=== PATIENT | male | born 1990 ===

== ENCOUNTER 2023-02-14 01:18 | Inpatient (IN) | payer SELFPAY ==
[~2023-02-14] VITALS: Ht 177.8 cm; Wt 82.7 kg
[2023-02-14] MEDS ORDERED: 0.9% SODIUM CHLORIDE 10 ML SYRINGE IVP PRN (01:45)
[2023-02-14] MEDS ORDERED: VANCOMYCIN HCL 1.25 GM in DEXTROSE 5%-WATER 250 ML IV ONE (01:45)
[2023-02-14] MEDS ORDERED: PIPERACILLIN SODIUM/TAZOBACTAM 4.5 GM in DEXTROSE 5%-WATER 100 ML IV ONE (01:45)
[2023-02-14] MEDS ORDERED: ACETAMINOPHEN 1000 MG/ISO-OSM 100 ML IV ONE (01:45)
[2023-02-14] MEDS ORDERED: SODIUM CHLORIDE 0.9% 2,450 ML IV ONE (01:45)
[2023-02-14 02:04] LABS: BASOPHILS % (AUTO) 0.2 % (0.0-2.0); EOSINOPHILS % (AUTO) 0 % (1.0-6.0); HEMOGLOBIN 13.7 g/dL (13.5-17.5); LYMPHOCYTES # (AUTO) 1.2 K/uL (1.0-4.8); LYMPHOCYTES % (AUTO) 11.5 % (22.0-44.0); MEAN CORPUSCULAR HEMOGLOBIN 28.6 pg (26.0-34.0); MEAN CORPUSCULAR HGB CONC 33.3 G/dL (31.0-37.0); MEAN CORPUSCULAR VOLUME 86 fL (80-100); MONOCYTES # (AUTO) 0.9 K/uL (0.1-1.0); MONOCYTES % (AUTO) 8.2 % (2.0-9.0); NEUTROPHILS # (AUTO) 8.5 K/uL (1.8-7.7); NEUTROPHILS % (AUTO) 80.1 % (40.0-70.0); PLATELET COUNT (AUTO) 201 K/uL (150-450); RED BLOOD CELL COUNT(AUTO) 4.77 MIL/uL (4.50-5.90); RED CELL DISTRIBUTION WIDTH 14.8 % (11.5-14.5); WHITE BLOOD COUNT (AUTO) 10.6 K/uL (4.5-11.0)
[2023-02-14 02:08] LABS: CALCIUM, TOTAL 8.5 mg/dL (8.8-10.5); CREATININE 1.55 mg/dL (0.60-1.30); POTASSIUM 4.2 mmol/L (3.5-5.1)
[2023-02-14 02:12] LABS: COVID AG,FIA SOURCE NASAL SWAB
[2023-02-14 02:16] LABS: TROPONIN I-HIGH SENSITIVITY 5 ng/L (<76)
[2023-02-14 02:19] LABS: ALBUMIN 3.4 g/dL (3.4-5.0); BILIRUBIN,TOTAL 0.8 mg/dL (0.1-1.0); MAGNESIUM 1.3 mg/dL (1.80-2.40); PHOSPHORUS 2.4 mg/dL (2.5-4.9); TOTAL PROTEIN, SERUM 8.1 g/dL (6.4-8.2)
[2023-02-14 02:44] LABS: INFLUENZA TYPE A NEGATIVE FOR TYPE A (NEGATIVE); INFLUENZA TYPE B NEGATIVE FOR TYPE B (NEGATIVE); SARS-COV2 (COVID) ANTIGEN,FIA Negative (Negative)
[2023-02-14] MEDS ORDERED: MAGNESIUM SULFATE 4 GM/WATER 100 ML IV PRN (02:45)
[2023-02-14] MEDS ORDERED: MAGNESIUM SULFATE 2 GM/WATER 50 ML IV PRN (02:45)
[2023-02-14] MEDS ORDERED: POTASSIUM CHL 10 MEQ/WATER 50 ML IV PRN (02:45)
[2023-02-14] MEDS ORDERED: ONDANSETRON HCL 4 MG/2 ML VIAL IVP PRN (02:45)
[2023-02-14] MEDS ORDERED: MAGNESIUM OXIDE 400 MG TABLET PO PRN (02:45)
[2023-02-14] MEDS ORDERED: POTASSIUM PHOS,M-BASIC-D-BASIC 10 MMOL in DEXTROSE 5%-WATER 100 ML IV ONE (02:45)
[2023-02-14] MEDS ORDERED: MAGNESIUM SULFATE 2 GM/WATER 50 ML IV ONE (02:45)
[2023-02-14] MEDS ORDERED: POTASSIUM CHLORIDE 20 MEQ ER TABLET PO PRN (02:45)
[2023-02-14] MEDS: RINGERS SOLUTION,LACTATED 1,000 ML IV SCH ×3 (03:02→23:39)
[2023-02-14] MEDS ORDERED: SULFAMETHOX/TRIMETH DS 800-160 MG/TABLET PO ONE (04:30)
[2023-02-14] MEDS ORDERED: AZITHROMYCIN 500 MG/NS 250 ML IV ONE (04:30)
[2023-02-14 05:53] LABS: APPEARANCE,URINE CLEAR (CLEAR); BILIRUBIN,URINE NEGATIVE (NEGATIVE); COLOR,URINE LIGHT YELLOW (YELLOW); GLUCOSE, URINE (UA) NEGATIVE (NEGATIVE); KETONES,URINE NEGATIVE (NEGATIVE); LEUKOCYTE ESTERASE ,URINE NEGATIVE (NEGATIVE); NITRATE,URINE NEGATIVE (NEGATIVE); OCCULT BLOOD,URINE NEGATIVE (NEGATIVE); PROTEIN,URINE NEGATIVE (NEGATIVE); SPECIFIC GRAVITIY, URINE 1.012 (1.003-1.030); UROBILINOGEN,URINE <=1.0 mg/dL (<=1.0)
[2023-02-14 06:00] LABS: ALCOHOL, URINE DRUG SCREEN NEGATIVE (NEGATIVE); AMPHET/METH SCREEN,URINE POSITIVE (NEGATIVE); BARBITURATE SCREEN, URINE NEGATIVE (NEGATIVE); BENZODIAZEPINES SCREEN,URINE NEGATIVE (NEGATIVE); CANNABINOID SCREEN,URINE NEGATIVE (NEGATIVE); COCAINE SCREEN,URINE NEGATIVE (NEGATIVE); METHADONE SCREEN, URINE NEGATIVE (NEGATIVE); OPIATE SCREEN,URINE NEGATIVE (NEGATIVE); PHENCYCLIDINE SCREEN,URINE NEGATIVE (NEGATIVE)
[2023-02-14] MEDS: HEPARIN SODIUM,PORCINE 5,000 UNITS/ML VIAL SQ SCH ×3 (08:00→23:41)
[2023-02-14] MEDS ORDERED: SODIUM CHLORIDE 0.9% 1,000 ML IV ONE (11:00)
[2023-02-14 11:34] VITALS: BP 102/62; PULSE 95; RESP 18; TEMP 98.9; O2SAT 99
[2023-02-14] MEDS: CefTRIAXone 1 GM/DEXTROSE 50 ML IV SCH (12:27)
[2023-02-14 15:48] VITALS: BP 113/57; PULSE 102; RESP 18; TEMP 97.6
[2023-02-14] MEDS: ACETAMINOPHEN 325 MG TABLET PO PRN ×2 (16:13→21:51)
[2023-02-14 19:34] VITALS: BP 103/56; PULSE 93; RESP 19; TEMP 99.4
[2023-02-14 20:04] VITALS: BP 94/56; PULSE 93; RESP 19; TEMP 100
[2023-02-14] MEDS ORDERED: LOPERAMIDE HCL 2 MG CAPSULE PO ONE (21:45)
[2023-02-15 03:06] LABS: LYMPHS % FOR CD4 COUNT 13 % (Not Estab.); LYMPHS ABS FOR CD4 COUNT 1.3 x10E3/uL (0.7-3.1)
[2023-02-15] MEDS: ACETAMINOPHEN 325 MG TABLET PO PRN ×2 (03:15→22:21)
[2023-02-15 04:50] VITALS: BP 110/65; PULSE 112; RESP 18; TEMP 101
[2023-02-15 07:15] LABS: BASOPHILS % (AUTO) 0.2 % (0.0-2.0); EOSINOPHILS % (AUTO) 0.2 % (1.0-6.0); HEMATOCRIT 34.9 % (41-53); HEMOGLOBIN 11.8 g/dL (13.5-17.5); LYMPHOCYTES # (AUTO) 1.2 K/uL (1.0-4.8); LYMPHOCYTES % (AUTO) 14.7 % (22.0-44.0); MEAN CORPUSCULAR HEMOGLOBIN 28.7 pg (26.0-34.0); MEAN CORPUSCULAR HGB CONC 33.9 G/dL (31.0-37.0); MEAN CORPUSCULAR VOLUME 85 fL (80-100); MONOCYTES # (AUTO) 0.5 K/uL (0.1-1.0); MONOCYTES % (AUTO) 6.4 % (2.0-9.0); NEUTROPHILS # (AUTO) 6.4 K/uL (1.8-7.7); NEUTROPHILS % (AUTO) 78.5 % (40.0-70.0); PLATELET COUNT (AUTO) 152 K/uL (150-450); RED BLOOD CELL COUNT(AUTO) 4.12 MIL/uL (4.50-5.90); RED CELL DISTRIBUTION WIDTH 14.4 % (11.5-14.5); WHITE BLOOD COUNT (AUTO) 8.1 K/uL (4.5-11.0)
[2023-02-15 07:21] LABS: ANION GAP 6 mmol/L (8-16); CALCIUM, TOTAL 7.9 mg/dL (8.8-10.5); CARBON DIOXIDE 26 mmol/L (22-29); CHLORIDE 102 mmol/L (98-107); CREATININE 1.11 mg/dL (0.60-1.30); GLOMERULAR FILTR. RATE CALC > 60 mL/min (>60); GLUCOSE,RANDOM 131 mg/dL (70-110); POTASSIUM 3.8 mmol/L (3.5-5.1); SODIUM SERUM 134 mmol/L (136-145); UREA NITROGEN, BLOOD 10 mg/dL (7-18)
[2023-02-15] MEDS: HEPARIN SODIUM,PORCINE 5,000 UNITS/ML VIAL SQ SCH ×3 (08:00→23:22)
[2023-02-15] MEDS: RINGERS SOLUTION,LACTATED 1,000 ML IV SCH ×2 (08:56→23:22)
[2023-02-15] MEDS: CefTRIAXone 1 GM/DEXTROSE 50 ML IV SCH (09:22)
[2023-02-15 10:07] LABS: ABSOLUTE CD4 COUNT 312 /uL (359-1519)
[2023-02-15 10:30] VITALS: BP 90/56; PULSE 70; RESP 18; TEMP 99.4
[2023-02-15] MEDS: MetroNIDAZOLE 500 MG TABLET PO SCH ×2 (16:49→23:22)
[2023-02-15 17:00] VITALS: BP 110/57; PULSE 65; RESP 19; TEMP 97.9
[2023-02-15 21:15] VITALS: BP 107/69; PULSE 73; RESP 18; TEMP 98.3
[2023-02-15] MEDS: MELATONIN 3 MG TABLET PO PRN (22:21)
[2023-02-15 23:40] LABS: APPEARANCE,URINE CLEAR (CLEAR); BILIRUBIN,URINE NEGATIVE (NEGATIVE); COLOR,URINE LIGHT YELLOW (YELLOW); GLUCOSE, URINE (UA) NEGATIVE (NEGATIVE); KETONES,URINE NEGATIVE (NEGATIVE); LEUKOCYTE ESTERASE ,URINE NEGATIVE (NEGATIVE); NITRATE,URINE NEGATIVE (NEGATIVE); OCCULT BLOOD,URINE NEGATIVE (NEGATIVE); PH,URINE 7.5 (5.0-8.0); PROTEIN,URINE NEGATIVE (NEGATIVE); SPECIFIC GRAVITIY, URINE 1.012 (1.003-1.030); UROBILINOGEN,URINE <=1.0 mg/dL (<=1.0)
[2023-02-15 23:55] LABS: BACTERIA,URINE None Seen /HPF (None Seen); RBC,URINE None Seen /HPF (0-2); TRANSITIONAL EPI CELLS,URINE None Seen /LPF (None Seen); WBC,URINE None Seen /HPF (0-5)
[2023-02-16 03:53] VITALS: BP 100/65; PULSE 60; RESP 18; TEMP 97.7
[2023-02-16 07:59] VITALS: BP 98/62; PULSE 65; RESP 18; TEMP 98.7
[2023-02-16] MEDS: HEPARIN SODIUM,PORCINE 5,000 UNITS/ML VIAL SQ SCH ×3 (08:00→23:05)
[2023-02-16 08:06] LABS: HIV 1-2 SCREEN 4TH GEN W/RFLX Preliminary Reactive (Non Reactive); HIV INTERPRETATION HIV-1 Positive; HIV-1 ANTIBODY(MULTISPOT) Reactive (Non Reactive); HIV-2 ANTIBODY(MULTISPOT) Non Reactive (Non Reactive)
[2023-02-16] MEDS: MetroNIDAZOLE 500 MG TABLET PO SCH ×3 (08:44→22:48)
[2023-02-16] MEDS: RINGERS SOLUTION,LACTATED 1,000 ML IV SCH ×2 (09:21→18:32)
[2023-02-16] MEDS: CefTRIAXone 1 GM/DEXTROSE 50 ML IV SCH (09:51)
[2023-02-16] MEDS: ALPRAZolam 1 MG TABLET PO PRN ×2 (11:36→20:49)
[2023-02-16 15:04] VITALS: BP 104/66; PULSE 68; RESP 18; TEMP 98.9
[2023-02-16 20:26] VITALS: BP 120/80; PULSE 76; RESP 18; TEMP 98.7
[2023-02-16] MEDS: MELATONIN 3 MG TABLET PO PRN (20:49)
[2023-02-16] MEDS ORDERED: DiphenhydrAMINE HCL 25 MG CAPSULE PO ONE (22:30)
[2023-02-16] MEDS ORDERED: HydrOXYzine HCL 25 MG TABLET PO ONE (23:00)
[2023-02-17 05:13] VITALS: BP 111/72; PULSE 62; RESP 18; TEMP 98.5
[2023-02-17] MEDS: HEPARIN SODIUM,PORCINE 5,000 UNITS/ML VIAL SQ SCH (08:00)
[2023-02-17 08:17] VITALS: BP 110/62; PULSE 60; RESP 18; TEMP 98.8
[2023-02-17] MEDS: CefTRIAXone 1 GM/DEXTROSE 50 ML IV SCH (09:10)
[2023-02-17] MEDS: MetroNIDAZOLE 500 MG TABLET PO SCH (09:14)
[2023-02-17] MEDS: RINGERS SOLUTION,LACTATED 1,000 ML IV SCH (15:20)
== END 2023-02-17 15:20 | disposition left against medical advice (07) | DRG 871 ==
LOC: EMS 01:21 → ICUN 03:37 → 5S 10:24 → 6S 19:30 → 6N 02-15 22:32
PROVIDERS: ADMIT Internal Medicine; ATTEND Internal Medicine
DX: A41.9 Sepsis, unspecified organism (principal); G92.9 Unspecified toxic encephalopathy; J18.9 Pneumonia, unspecified organism; N17.0 Acute kidney failure with tubular necrosis; F33.1 Major depressive disorder, recurrent, moderate; D84.9 Immunodeficiency, unspecified; F19.10 Other psychoactive substance abuse, uncomplicated; Z20.822 Contact with and (suspected) exposure to COVID-19; Z53.29 Procedure and treatment not carried out because of patient's decision for other reasons; F15.10 Other stimulant abuse, uncomplicated; T43.651A Poisoning by methamphetamines accidental (unintentional), initial encounter; Y92.89 Other specified places as the place of occurrence of the external cause
CPT/HCPCS: 71045; 80048; 80053; 80307; 81001; 81003; 82550; 83605; 83615; 83735; 83880; 84100; 84145; 84484; 85025; 86361; 86592; 87040; 87045; 87177; 87206; 87389; 87804; 89055; 93005; 99291; G0480; J0131; J0456; J0696; J1644; J2543; J3370; J3475; J3490; J7030; J7060; J7120; 36415-L1; 36415-TC